=== PATIENT | female | born 2000 | race Asian ===

== ENCOUNTER 2024-04-23 11:25 | Emergency (ER) | payer MEDICAID ==
[~2024-04-23] VITALS: Ht 162.6 cm; Wt 119.3 kg
[2024-04-23] MEDS ORDERED: PENI500T PO (11:56)
[2024-04-23 12:12] VITALS: BP 128/72; TEMP 98.6; O2SAT 96
== END 2024-04-23 12:13 | disposition home or self-care (01) ==
LOC: ER 11:30
DX: J02.9 Acute pharyngitis, unspecified (principal)
CPT/HCPCS: 86403-TC